=== PATIENT | female | born 1995 | race Caucasian/White ===

== ENCOUNTER 2019-07-09 23:12 | Emergency (ER) | payer BC, SELFPAY ==
[2019-07-09 23:13] VITALS: BP 112/75; PULSE 103; RESP 18; TEMP 38.1; O2SAT 95; BMI 35.2
--- NOTE | 2019-07-09 23:37 | RAD_ITS ---
STUDY: X-RAY CHEST REASON FOR EXAM: Female, 23 years old. Cough, shortness of breath and back pain x2 days. TECHNIQUE: PA and lateral views of the chest. 3 images COMPARISON: 10/21/2014 FINDINGS: There is no airspace disease in the left lower lobe with resolution of previous right upper lobe airspace disease. There is no demonstrated pleural abnormality. Normal size heart. Normal mediastinum and alondra. Normal visualized pulmonary arteries. Normal visualized aortic arch and descending thoracic aorta. Normal visualized thoracic spine. Normal visualized ribs, clavicles, and shoulders. There is no demonstrated abnormality of the visualized soft tissue structures of the upper abdomen. RAD/Chest PA and Lateral IMPRESSION: Left lower lobe pneumonia with resolution of previous right upper lobe pneumonia. Electronically Signed: Carla Jordan MD at 0:14 EST , Service support ,
--- NOTE | 2019-07-09 23:37 | ED.VIS.GEN ---
History of Present Illness Chief Complaint: Cough Narrative: Patient is a 23-year-old female who presents with cough. She has been ill for about 3 days. She complains of upper back pain neck pain and lower chest pain. She has a productive cough. Today she had a fever of 101.8. She reports posttussive emesis but otherwise no nausea. No diarrhea. She also complains of a headache and sore throat. She was seen at urgent care earlier today and diagnosed with viral syndrome and given prescriptions for Tessalon and Zofran. She complains of feeling short of breath. Past Medical History - Allergies and Home Meds Allergies/Adverse Reactions: Allergies No Known Allergies Allergy (Verified 03/02/17 14:57) Primary Care Physician: Care Physician,No Primary [Primary Care Provider] - Past Medical History: None Surgical History: - - Smoking Status: Never smoker - Family History Maternal Family History: Reports: Unknown Review of Systems All systems negative except as indicated General: Reports: Fever ENT: Reports: Sore throat Cardiovascular: Reports: Chest pain Respiratory: Reports: Dyspnea, Cough, Sputum Gastrointestinal: Denies: Nausea, Vomiting, Diarrhea Musculoskeletal: Reports: Myalgias, Neck pain, Back pain Skin: Denies: Rash Neurological: Reports: Headache Physical Exam Vital Signs/Narrative: Vital Signs Temp Pulse Resp BP Pulse Ox 07/09/19 23:13 100.5 F H 103 H 18 112/75 95 Inital Vital Signs reviewed: Yes General: Well nourished, Well developed Head: Normocephalic Eyes: EOMI ENT: Moist mucous membranes Neck: Supple Cardiovascular: - - Heart is regular rhythm, slightly tachycardic Respiratory: No distress, CTA bilaterally Abdomen: Soft, Nontender Skin: Normal color Neurological: Alert Psychological: Normal affect Diagnostic/Tx/Re-eval Impressions Chest X-Ray 07/09/19 23:37 IMPRESSION: Left lower lobe pneumonia with resolution of previous right upper lobe pneumonia. Electronically Signed: Carla Jordan MD at 0:14 EST , Service support , 07/09/19 23:37 Chest PA and Lateral [RAD] Stat - Medical Decision Making Chest x-ray shows left lower lobe pneumonia. Patient was symptomatically treated here with intramuscular Toradol. She was given first dose of azithromycin and a prescription to complete the course. She understands to return for new or worsening symptoms otherwise to follow-up as an outpatient was discharged home. ED Disposition - Plan for ED Patient: Disposition: Home or Assisted Living Diagnosis: Pneumonia Instructions: PNEUMONIA (Adult) Prescriptions: Azithromycin [Zithromax] 250 mg PO DAILY #4 tab Prescription Printed Referrals: Care Physician,No Primary [Primary Care Provider] -
[2019-07-10] MEDS: Ketorolac 60 MG/2 ML Vial IM (00:24)
[2019-07-10] MEDS: Azithromycin 250 MG Tablet 500 MG PO (00:28)
== END 2019-07-10 00:58 | disposition home or self-care (01) ==
PROVIDERS: Emergency Provider Emergency Medicine
DX: J18.9 Pneumonia, unspecified organism (principal)
CPT/HCPCS: 71046; 96372; 99283

== ENCOUNTER 2024-10-08 09:53 | Emergency (ER) | payer BC, SELFPAY ==
[2024-10-08 09:53] VITALS: BP 117/81; PULSE 75; RESP 20; TEMP 36.7; O2SAT 99; BMI 33.3
--- NOTE | 2024-10-08 11:19 | EDS_ITS ---
HPI History of Present Illness Chief Complaint: Other, Pain/Inj Informant: patient and spouse/S.O. Narrative Narrative: 29-year-old female presenting to the emergency room with chief complaint of neck pain. Patient states that last evening she developed pain in the back of her neck that radiates down to her shoulders and into the mid back. She notes that her neck is worse when she moves it. She notes pain when she swallows. She is also been experiencing discomfort in the anterior chest particularly when she takes a deep breath. She denies any known medical problems and takes no medications. She is a non-smoker. No cough or fever rhinorrhea. No nausea vomiting. She does not recall anything that would have injured her neck. PFSH PFSH Home Medications ?Medication ?Instructions ?Recorded ?Last Taken ?Type cyclobenzaprine 10 mg tablet 10 mg PO TID PRN Muscle S pasm #15 10/08/24 Unknown Rx TABLETS ketorolac 10 mg tablet 10 mg PO Q8H PRN pain #15 ta bs 10/08/24 Unknown Rx oxycodone-acetaminophen 5 mg-325 1 tab PO Q6H PRN PRN Pain 3 days 10/08/24 Unknown Rx mg tablet #12 TABLETS Allergy/AdvReac Type Severity Reaction Status Date / Time No Known Allergies Allergy Verified 10/08/24 09:55 Social History Smoking Status: Never smoker ROS ROS ED Constitutional Constitutional ED: Denies chills, fever(s) or weight loss Eyes Eyes: Denies change in vision or diplopia ENT ENT ED: Denies ear pain, rhinorrhea or sore throat Cardiovascular Cardiovascular: Reports chest pain; Denies orthopnea, palpitations or racing heartbeat Respiratory/Chest Respiratory/Chest: Denies cough, dyspnea or orthopnea Gastrointestinal Gastrointestinal: Denies abdominal pain, diarrhea, nausea or vomiting Genitourinary Genitourinary ED: Denies dysuria, hematuria or urinary frequency Musculoskeletal Musculoskeletal: Reports back pain and neck pain; Denies arthralgias or myalgias Integumentary Denies abscess or rash Neurologic Neurologic: Denies headache(s) or weakness Psychiatric Psychiatric: Denies anxiety, depression, suicidal ideation or suicidal thoughts Endocrine Endocrinology: Denies polydipsia, polyphagia or polyuria Allergic/Immunologic Allergic/Immunologic ED: Denies mouth swelling, tongue swelling or urticaria EXAM Physical Exam Const Vital Signs: 10/08/24 09:53 10/08/24 12:05 10/08/24 13:03 Temperature 98.1 F 98.1 F Temperature Source Oral Pulse Rate 75 75 Respiratory Rate 20 H 20 H Respiratory Effort Normal Respiratory Pattern Normal Blood Pressure 117/81 H 117/81 H Blood Pressure Mean 93 93 Pulse Ox 99 99 Oxygen Delivery Method Room Air Positive well nourished and well developed General Appearance ED: well developed HEENT Reports normocephalic, head/scalp atraumatic and moist mucous membranes Eyes PERRL and EOMs intact bilaterally Neck no lymphadenopathy, supple and no JVD Neck Narrative: Patient notes tenderness to palpation along her trapezius muscle bilaterally. She notes painful range of motion of the neck. No meningeal signs. No significant lymphadenopathy. Oropharyngeal exam appears normal. Handling secretions normally. Chest Wall Chest Narrative: Minor discomfort to the anterior chest when I palpate. Resp normal respiratory effort and clear to auscultation bilaterally Cardio regular rate, regular rhythm and no murmurs GI normal to inspection, nondistended, normoactive bowel sounds and non-tender Palpation: soft Back/Spine no CVA tenderness and normal ROM Extremity normal to inspection General Extremety ED: Negative for edema General Extremity: Negative for edema Neuro oriented x3 and CN's II-XII intact bilaterally Sensorium / Orientation: alert Motor Exam: strength 5/5 throughout Psych mental status grossly normal Mood & Affect: tearful; Negative for depressed Skin no rashes or lesions noted and no wounds MDM MDM MDM Narrative Medical decision making narrative: Differential diagnosis includes but not limited to muscle spasm muscle strain myofascial strain pulmonary embolism acute coronary syndrome pneumothorax pleural effusion Basic blood work shows a troponin less than 3 negative test D-dimer is less than 0.27. Normal white count normal BMP except for glucose of 109. Independent rotation of the chest x-ray is no acute process. She received a dose of Toradol. Clinically I think the patient symptoms are musculoskeletal in nature. Would recommend anti-inflammatory muscle relaxant heat gentle stretching/massage return if worsening symptoms or not improving History & Record Review Discussion w/independent historian: Patient and Significant other Lab Data Attestation: I reviewed the patient's lab results. Labs: Laboratory Results - last 24 hr 10/08/24 11:30 WBC 10.6 RBC 5.36 Hgb 15.6 H Hct 47.3 H MCV 88.2 MCH 29.1 MCHC 33.0 RDW Std Deviation 46.3 H RDW Coeff of [place] 14.5 Plt Count 306 MPV 10.2 Immature Gran % (Auto) 1.000 H Neut % (Auto) 66.4 Lymph % (Auto) 21.7 [place] % (Auto) 7.5 Eos % (Auto) 2.5 Baso % (Auto) 0.9 Absolute Neuts (auto) 7.0 Absolute Lymphs (auto) 2.30 Nucleated RBC % 0 D-Dimer Quant (PE/DVT) < 0.27 L Sodium 138 Potassium 4.0 Chloride 109 H Carbon Dioxide 26.0 Anion Gap 4 L BUN 14 Creatinine 0.67 Estim Creat Clear Calc 111.78 Est GFR (MDRD) Af Amer 131 Est GFR (MDRD) Non-Af 108 BUN/Creatinine Ratio 20.8 H Glucose 109 H Calcium 8.8 Troponin I High Sens < 3 L Serum , Qual NEGATIVE Radiography Diagnostic Testing: Clinical Impression(s) from Imaging Studies Chest X-Ray 10/08/24 11:45 IMPRESSION: NEGATIVE CHEST. Reading Location: [facility] EKG Initial EKG: Attestation: I personally reviewed and interpreted this EKG as follows: Comments: Normal sinus rhythm ventricular rate of 67 bpm Discharge Plan Triage Chief Complaint: Other, Pain/Inj ED Provider: Cr Vogel Dx/Rx/DC Orders Clinical Impression: Cervical paraspinal muscle spasm, Chest pain Instructions: Muscle Spasm, ED Chest Pain, Noncardiac Prescriptions: New cyclobenzaprine 10 mg tablet 10 mg PO TID PRN (Reason: Muscle Spasm) Qty: 15 0RF ketorolac 10 mg tablet 10 mg PO Q8H PRN (Reason: pain) Qty: 15 0RF Rx Instructions: maximum total duration of 5 days from all oral, intranasal, or parenteral formulations oxycodone-acetaminophen 5-325 mg tablet 1 tab PO Q6H PRN PRN (Reason: Pain) 3 Days Qty: 12 0RF Primary Care Provider: Care Physician,No Primary Referrals: Care Physician,No Primary [Primary Care Provider] - Print Language: Wolof Disposition Disposition: Home, Self Care Discharge Date/Time: 10/08/24 13:06
--- NOTE | 2024-10-08 11:19 | EKG12_ITS ---
Test Reason : CP Blood Pressure : */* mmHG Vent. Rate : 67 BPM Atrial Rate : 67 BPM P-R Int : 146 ms QRS Dur : 66 ms QT Int : 374 ms P-R-T Axes : 28 21 37 degrees QTcB Int : 395 ms Normal sinus rhythm Poor R wave progression low voltage v leads Abnormal ECG Confirmed by Andrew Sanchez ([id number]), editor managing newspaper TELMA MÉNDEZ ([id number]) on 10/09/2024 11:21:47 AM Referred By: Confirmed By: Andrew Sanchez
--- NOTE | 2024-10-08 11:45 | RAD_ITS ---
PROCEDURE: CHEST 1 VIEW (PORTABLE) TECHNIQUE: Frontal view of the chest. COMPARISON: Comparison is made with prior study dated July 09, 2019. FINDINGS: EKG electrodes are seen The heart size is normal. The lungs are clear. The previously seen left lower lobe consolidation has resolved. RAD/Chest 1 View (Portable) IMPRESSION: NEGATIVE CHEST. Reading Location: [id number]
[2024-10-08 11:46] LABS: Basophil# 0.09 X10^3/uL; Basophil% 0.9 % (0-1); Eosinophil# 0.26 X10^3/uL; Eosinophils% 2.5 % (0-5); Hematocrit 47.3 % (37-47); Hemoglobin 15.6 g/dL (12.0-15.0); Lymphocyte % 21.7 % (19-41); Mean Corpuscular Hgb 29.1 pg (27.0-32.0); Mean Corpuscular Volume 88.2 fL (81-99); Mean Platelet Vol. 10.2 fl (6.2-12.0); Monocyte# 0.79 X10^3/uL; Monocyte% 7.5 % (0-10); NRBC Flagged by Analyzer 0 % (0-5); Neutrophil # 7.03 X10^3/uL (2.7-7.7); Neutrophil % 66.4 % (47-70); Platelet Count 306 K/mm3 (150-450); RBC Distribution Width CV 14.5 % (11.6-14.6); RBC Distribution Width SD 46.3 fl (35.1-43.9); Red Blood Count 5.36 M/mm3 (4.2-5.4); White Blood Count 10.6 K/mm3 (4.4-11.0)
[2024-10-08 11:58] LABS: Internal QC Validated? YES +Cl - CLEAR BKGD; Pregnancy, Serum, hCG Quali. NEGATIVE Negative
[2024-10-08] MEDS: Ketorolac 30 MG/ML Syringe IV (12:03)
[2024-10-08 12:06] LABS: Anion Gap 4 (5-15); BUN 14 mg/dL (7-18); BUN/Creat Ratio 20.8 RATIO (10-20); Calcium,Total 8.8 mg/dL (8.5-10.1); Chloride 109 mmol/L (98-107); Creatinine, Serum 0.67 mg/dL (0.55-1.02); EST Glomerular Filtration Rate 108 mL/min (>60); Est Glom Filt Rate - Afr Amer 131 mL/min (>60); Estimated Creatinine Clearance 111.78 ml/min; Glucose 109 mg/dL (74-106); Sodium Level 138 mmol/L (136-145); Troponin-I HS < 3 pg/mL (3.0-54.0)
[2024-10-08 12:48] LABS: D-Dimer Quantitative (DVT/PE) < 0.27 FEU/ug/m (0.27-0.49)
[2024-10-08 13:03] VITALS: BP 117/81; PULSE 75; RESP 20; TEMP 36.7; O2SAT 99
== END 2024-10-08 13:06 | disposition home or self-care (01) ==
PROVIDERS: Emergency Provider Emergency Medicine; Visit Provider Emergency Medicine
DX: M62.830 Muscle spasm of back (principal); R07.9 Chest pain, unspecified
CPT/HCPCS: 71045; 80048; 84484; 84703; 85025; 85379; 93005; 96374; 99284; A4216